=== PATIENT | male | born 1990 | race African-American/Black ===

== ENCOUNTER 2016-09-16 17:07 | Inpatient (IN) ==
[2016-09-16] MEDS ORDERED: SODIUM CHLORIDE 0.9% 1,000 ML IV STA ×2 (17:53→18:38)
--- NOTE | 2016-09-16 17:53 | Emergency Department Note ---
Steven Arnold Brooke, am scribing for, and in the presence of, Cornelio Kilgore MD 17:39. Jame Arnold Phillip K, MD, personally performed the services described in this documentation, ascribed by Aleksandra Harris in my presence, and it is both accurate and complete [id number] . Arrival - Arrival ED Nursing Triage Note: pt to er 05 via ems coming from home with c/o having sob onset today. pt is on hospice care pt does have HIV. Mode of Arrival: Stretcher Limitations: No Limitations Source: Patient, Family (Mother), RN Notes Reviewed <Cornelio Kilogre - Last Filed: 09/16/16 17:52> <Noah Bajwa - Last Filed: 09/16/16 20:24> - Arrival Chief Complaint: Shortness of Breath Stated Complaint: SOB Time Seen by Provider: 09/16/16 17:27 - History of Present Illness HPI Narrative: Patient is a 26 year old male, with history of HIV, who presents to the ED with c/o SOB that started this afternoon. Patient is a poor historian. Mother says she was changing Patient's clothes and he become SOB. Patient was discharged from [facility] on Saturday after being hospitalized for since August 13. following respiratory arrest. Patient was discharged on Hospice with [facility], and was put on comfort measures. Patient's blood pressure has been running low since being discharged. Mother denies Patient having any fever but says he has had a cough and diarrhea. Patient was not prescribed any pain medications and the hospice nurse states that Patient was not in pain at the time of discharge. Patient has no other medical problems. (Aleksandra Harris) Patient is a 26 year old male, with history of HIV, who presents to the ED with c/o SOB that started this afternoon. Patient is a poor historian. Mother says she was changing Patient's clothes and he become SOB. Patient was discharged from [facility] on Saturday after being hospitalized for since August 13. following respiratory arrest. Patient was discharged on Hospice with [facility], and was put on comfort measures. Patient's blood pressure has been running low since being discharged. Mother denies Patient having any fever but says he has had a cough and diarrhea. Patient was not prescribed any pain medications and the hospice nurse states that Patient was not in pain at the time of discharge. Patient has no other medical problems. (Cornelio Kilgore) Allergies/Adverse Reactions: Allergies Allergy/AdvReac Type Severity Reaction Status Date / Time Shellfish Allergy Swelling Verified 08/13/16 01:35 of Lip/Tongue/Throat Home Medications: Home Medications Medication Instructions Recorded Confirmed Type FLUoxetine [PROzac] 20 mg PO QPM 09/16/16 09/16/16 History Review of System - Review of System ROS unobtainable: other (Non resposive) - Review of System Constitutional: Absent: fever Respiratory: Present: cough, other (SOB). Absent: respiratory distress Gastrointestinal: Present: diarrhea <Cornelio Kilgore - Last Filed: 09/16/16 17:52> Medical,Surgical,& Family Hx - Medical History Other: History of: HIV - Social History Smoking Status: Unknown if ever smoked Frequency of Alcohol Use: Unknown Type of Drug Use: Unknown <Cornelio Kilgore - Last Filed: 09/16/16 17:52> Vital Signs: Vital Signs Temperature 97.0 F L 09/16/16 17:07 Pulse Rate 85 09/16/16 19:15 Respiratory Rate 18 09/16/16 19:15 Blood Pressure 77/46 09/16/16 19:15 O2 Sat by Pulse Oximetry 100 09/16/16 19:15 Course <Cornelio Kilgore - Last Filed: 09/16/16 17:52> - Reevaluation(s) Time: 20:23 <Noah Bajwa - Last Filed: 09/16/16 20:24> - Reevaluation(s) Reevaluation #1: Dr. Aleksandr Rivas will evaluate and admit the patient. (Noah Bajwa) Results <Cornelio Kilgore - Last Filed: 09/16/16 17:52> - Labs CBC & BMP: 09/16/16 19:43 09/16/16 19:43 Lab Results: I have reviewed the patients labs - Diagnostic Findings Procedure: Chest x-ray: image reviewed by me (No acute process) <Noah Bajwa - Last Filed: 09/16/16 20:24> - Labs Labs: Lab Results WBC 18.8 T/CUMM (4-12) H 09/16/16 19:43 RBC 3.21 MC/CUMM (3.8-5.5) L 09/16/16 19:43 Hgb 9.3 GM/DL (14.0-18.0) L 09/16/16 19:43 Hct 27.1 VOL% (42.0-52.0) L 09/16/16 19:43 MCV 84.4 FL (87-102) L 09/16/16 19:43 MCH 29 PG (27-34) 09/16/16 19:43 MCHC 34.3 GM/DL (32-36) 09/16/16 19:43 RDW 16.7 % (9.3-17.3) 09/16/16 19:43 Plt Count 490 T/CUMM (130-400) H 09/16/16 19:43 MPV 10.8 FL (9.6-12.0) 09/16/16 19:43 Neut % (Auto) 90.1 % (38.7-73.9) H 09/16/16 19:43 Lymph % (Auto) 3.2 % (21.2-54.2) L 09/16/16 19:43 [place] % (Auto) 4.4 % (1.7-12.7) 09/16/16 19:43 Eos % (Auto) 0.0 % (0.00-10.9) 09/16/16 19:43 Baso % (Auto) 0.1 % (0.0-0.8) 09/16/16 19:43 Neut # (Auto) 16.9 10*3/uL (1.4-7.4) H 09/16/16 19:43 Lymph # (Auto) 0.6 10*3/uL (1.4-4.0) L 09/16/16 19:43 [place] # (Auto) 0.8 10*3/uL (0.11-0.8) 09/16/16 19:43 Eos # (Auto) 0.0 10*3/uL (0.0-0.87) 09/16/16 19:43 Baso # (Auto) 0.0 10*3/uL (0.0-0.2) 09/16/16 19:43 Immature Gran % 2.2 % 09/16/16 19:43 Nucleated RBC % 0.0 /100WBC 09/16/16 19:43 Immature Gran # 0.42 # 09/16/16 19:43 Nucleated RBCs # 0.00 10*3/uL 09/16/16 19:43 (Noah Bajwa) Disposition <Cornelio Kilgore - Last Filed: 09/16/16 17:52> Case discussed with: patient, patient's family Time of Disposition: 20:24 <Noah Bajwa - Last Filed: 09/16/16 20:24> Clinical Impression: Terminal HIV, Profound dehydration, Hypokalemia Disposition: Still a Patient Condition: Stable
--- NOTE | 2016-09-16 18:30 | XRay Report ---
Chest, one view Comparison 08/13/2016 History short of breath The heart is normal in size. The lungs are clear. Impression: No acute pathology seen. PROCEDURE INTERPRETED AT [facility] DEPARTMENT OF RADIOLOGY Final Report Signed by: Dr. Carmencita Damon
[2016-09-16 19:51] LABS: Basophils % 0.1 % (0.0-0.8); Hematocrit 27.1 VOL% (42.0-52.0); Hemoglobin 9.3 GM/DL (14.0-18.0); Immature Granulocytes % 2.2 %; Immature Granulocytes Absolute 0.42 #; Lymphocytes # 0.6 10*3/uL (1.4-4.0); Lymphocytes % 3.2 % (21.2-54.2); Mean Corpuscular HGB Conc 34.3 GM/DL (32-36); Mean Corpuscular Hemoglobin 29 PG (27-34); Mean Corpuscular Volume 84.4 FL (87-102); Mean Platelet Volume 10.8 FL (9.6-12.0); Monocytes # 0.8 10*3/uL (0.11-0.8); Monocytes % 4.4 % (1.7-12.7); Neutrophils # 16.9 10*3/uL (1.4-7.4); Neutrophils % 90.1 % (38.7-73.9); Platelet Count 490 T/CUMM (130-400); Red Blood Count 3.21 MC/CUMM (3.8-5.5); Red Cell Distribution Width 16.7 % (9.3-17.3); White Blood Count 18.8 T/CUMM (4-12)
[2016-09-16 20:14] LABS: Albumin 2.9 G/DL (3.4-5.0); Bilirubin,Total 0.4 MG/DL (0.2-1.0); Calcium 7.5 MG/DL (8.5-10.1); Total Protein 7.4 G/DL (6.4-8.3)
[2016-09-16 20:15] LABS: Magnesium 2.1 MG/DL (1.8-2.4); Potassium 2.9 MMOL/L (3.5-5.1)
[2016-09-16 20:17] LABS: Lymphocytes 2 % (20-55); Segmented Neutrophils 95 % (50-85); Total Cells Counted 100
[2016-09-16 20:18] LABS: Anisocytosis 1+; Burr Cells Few; Platelet Estimate Increased; Polychromasia Few; Schistocytes Few
--- NOTE | 2016-09-16 21:07 | Hospitalist History & Physical ---
Assessment and Plan (1) Dehydration Status: Acute Current Visit: Yes (2) History of wasting syndrome Status: Acute Current Visit: Yes (3) HIV (human immunodeficiency virus infection) Status: Acute Current Visit: Yes (4) Diarrhea Status: Acute Current Visit: Yes (5) Acute kidney injury Status: Acute Current Visit: Yes (6) Hypotension Status: Acute Assessment and plan: Plan for this patient will admit the patient to our service. Patient looks severely dehydrated. Per review of his previous hospitalization he required pressors and had a infection of cryptosporidiosis. We will culture his stool and do stool studies. He has a leukocytosis of 18 currently. He could have a bronchitis. We will treat him with antibiotics IV and monitor the patient in the unit at least overnight. Patient will be a full code. Will recheck x-ray after hydration through the night in the morning. Will consult healthcare social worker. Current Visit: Yes History of Present Illness Chief complaint: Shortness of breath History of present illness: Mr. Zamora is a 26 year old male with past medical history significant for HIV the who presents to the ER complaining of shortness of breath that started this afternoon. According to the ER note this occurred when the patient was having his clothes changed by his mother and he became short of breath. He was just recently discharged from [facility] this Saturday. According to information sent to us he had a respiratory arrest and was intubated and on mechanical ventilation. 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 Looking at the paperwork from the hospitalization he was refusing O2 refusing supplemental shakes eating about 25% of his meals. They felt his was having diarrhea and wasting syndrome. They discharged him on hospice feeling that was the best option for him. They felt he would not survive long at home. They said that in their opinion he was not a candidate for antiretroviral secondary to the diarrhea and significant risk for IRIS (immune reconstitution sensation inflammatory syndrome) his prognosis was very poor. Patient reports that he has had steady diarrhea for several months. He was on antiretrovirals at one time. He said that his family is trying to get him back on them. They brought him up to our hospital for further evaluation. Patient is severely malnourished and dehydrated. He maintains he wants to be a full code. I do not think patient understands the severity of his illness. Home Medications Medication Instructions Recorded Confirmed Type FLUoxetine [PROzac] 20 mg PO QPM 09/16/16 09/16/16 History Allergies Allergy/AdvReac Type Severity Reaction Status Date / Time Shellfish Allergy Swelling Verified 08/13/16 01:35 of Lip/Tongue/Throat Medical,Surgical,& Family Hx - Medical History Other: History of: HIV - Surgical History Surgical History: noncontributory (None) - Family History Family History: Reports;: Family Hypertension - Social History Smoking Status: Unknown if ever smoked Frequency of Alcohol Use: Unknown Type of Drug Use: Unknown 12 point system: reviewed and no additional remarkable complaints except as stated Exam - Constitutional Vitals: Period Temp Pulse Resp BP Sys/Alexander Pulse Ox Last 24 Hr 97.0 F-97.0 F 83-99 16-20 65-95/40-62 94-100 General appearance: no acute distress, under weight (Temporal wasting) - Head Head exam: Present: normal inspection - Eye Eye exam: Present: EOMI Pupils: Present: KERWIN - ENT ENT exam: Present: normal exam - Neck Neck exam: Present: normal inspection - Respiratory Respiratory exam: Present: clear to auscultation bilaterally - Cardiovascular Cardiovascular exam: Present: regular rate and rhythm - GI/Abdominal GI/Abdominal exam: Present: normal bowel sounds - Extremities Exam Extremities exam: Present: normal inspection - Back Exam Back exam: Present: normal inspection - Neurological Exam Neurological exam: Present: alert - Psychiatric Psychiatric exam: Present: flat affect - Skin Skin exam: Present: normal color Results - Labs CBC & BMP: 09/16/16 19:43 09/16/16 19:43
[2016-09-16] MEDS ORDERED: ALBUTEROL 2.5 MG/3 ML NEB RESP TX PRN (21:13)
[2016-09-16] MEDS: SODIUM CHLORIDE 0.9% 1,000 ML IV SCH (22:19)
[2016-09-16] MEDS: POTASSIUM CHLORIDE RIDER 10 MEQ in PREMIX 1 EACH IV SCH ×2 (22:20→23:21)
[2016-09-16] MEDS: ENOXAPARIN 30 MG/0.3 ML SYRINGE SUBCUT SCH (22:20)
[2016-09-16] MEDS: PANTOPRAZOLE 40 MG VIAL IV SCH (22:20)
[2016-09-16] MEDS: cefTRIAXone 1,000 MG in SODIUM CHLORIDE 0.9% 100 ML IV SCH (22:21)
[2016-09-16] MEDS ORDERED: INFLUENZA VIRUS VACCINE 0.5 ML SYRINGE IM ONE (22:43)
[2016-09-16] MEDS: AZITHROMYCIN INJ 500 MG in SODIUM CHLORIDE 0.9% 250 ML IV SCH (23:21)
[2016-09-17] MEDS: POTASSIUM CHLORIDE RIDER 10 MEQ in PREMIX 1 EACH IV SCH (00:40)
[2016-09-17 04:57] LABS: Amorphous Crystals,Urine Occasional /HPF (Few); Apearance,Urine CLOUDY (Clear); Bilirubin,Urine Negative (Negative); Blood, Urine Moderate mg/dL (Negative); Glucose,Urine (UA) Negative (Negative); Ketones,Urine Negative (Negative); Mucus,Urine Occasional /LPF (Occasional); Nitrite,Urine Negative (Negative); Protein,Urine 30 MG/DL; RBC,Urine 2 /HPF (0-4); Urine Color Dark yellow (Yellow); Urine Specific Gravity 1.013 (1.001-1.035); Urine Urobilinogen < 2.0 EU/DL (0.2-1.0); WBC,Urine 31 /HPF (0-6)
[2016-09-17 06:10] LABS: Calcium 6.7 MG/DL (8.5-10.1); Osmolality,Calculated 293.8 MOS/KG (273-304); Potassium 3.3 MMOL/L (3.5-5.1)
[2016-09-17 06:43] LABS: Basophils % 0.1 % (0.0-0.8); Hematocrit 28.1 VOL% (42.0-52.0); Hemoglobin 9.8 GM/DL (14.0-18.0); Immature Granulocytes Absolute 0.27 #; Lymphocytes # 0.5 10*3/uL (1.4-4.0); Lymphocytes % 3.8 % (21.2-54.2); Mean Corpuscular HGB Conc 34.9 GM/DL (32-36); Mean Corpuscular Hemoglobin 29 PG (27-34); Mean Corpuscular Volume 81.9 FL (87-102); Mean Platelet Volume 10.8 FL (9.6-12.0); Monocytes # 0.9 10*3/uL (0.11-0.8); Monocytes % 7.1 % (1.7-12.7); NRBC # 0.02 10*3/uL; Neutrophils # 11.6 10*3/uL (1.4-7.4); Platelet Count 524 T/CUMM (130-400); Red Blood Count 3.43 MC/CUMM (3.8-5.5); Red Cell Distribution Width 16.2 % (9.3-17.3); White Blood Count 13.3 T/CUMM (4-12)
[2016-09-17 07:05] LABS: Lymphocytes 1 % (20-55); Segmented Neutrophils 97 % (50-85); Total Cells Counted 100
[2016-09-17 07:06] LABS: Burr Cells Slight; Elliptocytes Few; Hypochromasia Slight; Platelet Estimate Adequate
--- NOTE | 2016-09-17 07:24 | XRay Report ---
XR chest 1V Indication: Shortness of breath. Chest one view: Comparison yesterday. The heart size and mediastinal contour are normal. The lungs and pleural spaces are clear. Bones are unremarkable. Impression: Negative chest. Unchanged. PROCEDURE INTERPRETED AT [facility] DEPARTMENT OF RADIOLOGY Final Report Signed by: Aleksandr Guy M.D.
[2016-09-17] MEDS: SODIUM CHLORIDE 0.9% 1,000 ML IV SCH ×4 (07:31→22:40)
--- NOTE | 2016-09-17 16:20 | Hospitalist Progress Note ---
Assessment and Plan (1) Acute kidney injury Status: Acute Assessment and plan: Possibly due to dehydration. Unknown baseline, but did improve overnight. Continue with hydration. Current Visit: Yes (2) Dehydration Status: Acute Current Visit: Yes (3) Diarrhea Status: Acute Assessment and plan: C.diff and stool cultures negative Current Visit: Yes (4) HIV (human immunodeficiency virus infection) Status: Acute Current Visit: Yes (5) History of wasting syndrome Status: Acute Current Visit: Yes (6) Hypokalemia Status: Acute Current Visit: Yes (7) Hypotension Status: Acute Assessment and plan: Slightly better Current Visit: Yes Hospitalist: Subjective Interval history: No acute events overnight. BP low but stable, not requiring pressors. Creatinine is better today. Will transfer to the floor. Exam - Constitutional Vitals: Period Temp Pulse Resp BP Sys/Alexander Pulse Ox Last 24 Hr 97.1 F-97.6 F 60-96 11-21 69-120/33-66 96-100 General appearance: cachectic - Head Head exam: Present: normocephalic, atraumatic - Eye Eye exam: Present: EOMI Pupils: Present: KERWIN - ENT ENT exam: Present: normal exam - Neck Neck exam: Present: normal inspection - Respiratory Respiratory exam: Present: clear to auscultation bilaterally. Absent: rales, wheezes - Cardiovascular Cardiovascular exam: Present: regular rate and rhythm - GI/Abdominal GI/Abdominal exam: Present: normal bowel sounds, soft. Absent: tenderness, rebound - Extremities Exam Extremities exam: Present: normal inspection - Back Exam Back exam: Present: normal inspection - Neurological Exam Neurological exam: Present: alert - Psychiatric Psychiatric exam: Present: normal affect, normal mood - Skin Skin exam: Present: warm, intact Results - Labs CBC & BMP: 09/17/16 06:17 09/17/16 05:09
[2016-09-17] MEDS: PANTOPRAZOLE 40 MG VIAL IV SCH (22:38)
[2016-09-17] MEDS: FLUoxetine 20 MG CAPSULE PO SCH (22:38)
[2016-09-17] MEDS: DIPHENOXYLATE/ATROPINE 2.5-0.025 MG TABLET PO PRN (22:38)
[2016-09-17] MEDS: ENOXAPARIN 30 MG/0.3 ML SYRINGE SUBCUT SCH (22:38)
[2016-09-17] MEDS: cefTRIAXone 1,000 MG in SODIUM CHLORIDE 0.9% 100 ML IV SCH (22:39)
[2016-09-17] MEDS: AZITHROMYCIN INJ 500 MG in SODIUM CHLORIDE 0.9% 250 ML IV SCH (23:30)
[2016-09-18 04:10] LABS: Basophils % 0.1 % (0.0-0.8); Eosinophils % 0.1 % (0.00-10.9); Hematocrit 25.7 VOL% (42.0-52.0); Hemoglobin 9.1 GM/DL (14.0-18.0); Immature Granulocytes % 1.4 %; Immature Granulocytes Absolute 0.11 #; Lymphocytes # 0.4 10*3/uL (1.4-4.0); Lymphocytes % 4.8 % (21.2-54.2); Mean Corpuscular HGB Conc 35.4 GM/DL (32-36); Mean Corpuscular Hemoglobin 29 PG (27-34); Mean Corpuscular Volume 81.3 FL (87-102); Mean Platelet Volume 10.7 FL (9.6-12.0); Monocytes # 0.7 10*3/uL (0.11-0.8); Monocytes % 8.8 % (1.7-12.7); NRBC # 0.03 10*3/uL; Neutrophils # 6.5 10*3/uL (1.4-7.4); Neutrophils % 84.8 % (38.7-73.9); Platelet Count 492 T/CUMM (130-400); Red Blood Count 3.16 MC/CUMM (3.8-5.5); White Blood Count 7.6 T/CUMM (4-12)
[2016-09-18 04:52] LABS: Hypochromasia 1+; Lymphocytes 6 % (20-55); Nucleated Red Blood Cells 1 (0-5); Platelet Estimate Adequate; Segmented Neutrophils 87 % (50-85); Total Cells Counted 100
[2016-09-18 04:53] LABS: Ovalocytes Slight
[2016-09-18 04:58] LABS: Calcium 7.7 MG/DL (8.5-10.1); Magnesium 2.1 MG/DL (1.8-2.4); Osmolality,Calculated 302.7 MOS/KG (273-304); Potassium 2.7 MMOL/L (3.5-5.1)
[2016-09-18] MEDS: SODIUM CHLORIDE 0.9% 1,000 ML IV SCH ×3 (07:09→20:23)
[2016-09-18] MEDS ORDERED: POTASSIUM CHLORIDE 20 MEQ/15 ML UDCUP PER TUBE PRN (10:05)
[2016-09-18] MEDS: POTASSIUM CHLORIDE RIDER 10 MEQ in PREMIX 1 EACH IV PRN ×4 (11:54→15:55)
--- NOTE | 2016-09-18 14:22 | General Surgery Consult Note ---
Assessment and Plan (1) Sacral ulcer Status: Acute Assessment and plan: Impression: Sacral ulcer Plan: Depth of the ulcer unknown. It needs debridement at some point in the near future but this can wait until he is better medically. I'll plan to debride this once he is cleared by his primary team to undergo anesthesia. This does not appear to be infected. He cannot tolerate bedside debridement as it is very tender. Current Visit: Yes History of Present Illness Chief complaint: consult for sacral ulcer History of present illness: Mr. Zamora is a 26 year old male with HIV and multiple medical problems has been transferred to the floor from the ICU. He was noted to have a sacral ulcer. This is been present for a long time. Home Medications Medication Instructions Recorded Confirmed Type FLUoxetine [PROzac] 20 mg PO QPM 09/16/16 09/16/16 History Allergies Allergy/AdvReac Type Severity Reaction Status Date / Time Shellfish Allergy Swelling Verified 08/13/16 01:35 of Lip/Tongue/Throat Medical,Surgical,& Family Hx - Medical History Cardio: History of: Cardiovascular Problems (recent cardiac arrest) Psychological: History of: Depression, Previous Suicide Attempt Endocrine: No history of: Diabetes Mellitus (IDDM), Diabetes Mellitus (NIDDM), Thyroid Disorder Respiratory: History of: Intubation Gastrointestinal: History of: GI Problems (diagonosis of cryptosporidosis) Other: History of: HIV - Family History Family History: Reports;: Family Hypertension - Social History Smoking Status: Unknown if ever smoked Frequency of Alcohol Use: Unknown Type of Drug Use: Unknown 12 point system: reviewed and no additional remarkable complaints except as stated Exam - Constitutional Vitals: Period Temp Pulse Resp BP Sys/Alexander Pulse Ox Last 24 Hr 97.0 F-98.4 F 90-98 18-20 100-106/55-70 94-100 General appearance: no acute distress - Head Head exam: Present: normocephalic - Respiratory Respiratory exam: Present: clear to auscultation bilaterally - Cardiovascular Cardiovascular exam: Present: RRR - GI/Abdominal GI/Abdominal exam: Present: soft - Extremities Exam Extremities exam: Present: other (large sacral ulcer with necrotic subcutaneous tissue present. There is no erythema or purulence.) Results - Labs CBC & BMP: 09/18/16 03:51 09/18/16 03:51
--- NOTE | 2016-09-18 17:07 | Hospitalist Progress Note ---
Assessment and Plan (1) Acute kidney injury Status: Acute Assessment and plan: Possibly due to dehydration. Unknown baseline, but continues to improve. Continue with hydration. Current Visit: Yes (2) Dehydration Status: Acute Current Visit: Yes (3) Diarrhea Status: Acute Assessment and plan: C.diff and stool cultures negative Current Visit: Yes (4) HIV (human immunodeficiency virus infection) Status: Acute Current Visit: Yes (5) History of wasting syndrome Status: Acute Current Visit: Yes (6) Hypokalemia Status: Acute Current Visit: Yes (7) Hypotension Status: Acute Assessment and plan: Slightly better Current Visit: Yes Hospitalist: Subjective Interval history: No acute events overnight. Patient still not very talkative. Does have a significant ulcer, surgery consulted. Replace potassium. Leukocytosis is resolved. Exam - Constitutional Vitals: Period Temp Pulse Resp BP Sys/Alexander Pulse Ox Last 24 Hr 97.3 F-98.4 F 90-95 18-20 102-106/55-70 99-100 Results - Labs CBC & BMP: 09/18/16 03:51 09/18/16 03:51
[2016-09-18] MEDS: FLUoxetine 20 MG CAPSULE PO SCH (18:44)
[2016-09-18] MEDS: PANTOPRAZOLE 40 MG VIAL IV SCH (22:51)
[2016-09-18] MEDS: ENOXAPARIN 30 MG/0.3 ML SYRINGE SUBCUT SCH (22:53)
[2016-09-18] MEDS: cefTRIAXone 1,000 MG in SODIUM CHLORIDE 0.9% 100 ML IV SCH (22:54)
[2016-09-18] MEDS: AZITHROMYCIN INJ 500 MG in SODIUM CHLORIDE 0.9% 250 ML IV SCH (23:38)
[2016-09-19] MEDS: SODIUM CHLORIDE 0.9% 1,000 ML IV SCH ×2 (04:37→11:00)
[2016-09-19] MEDS: POTASSIUM CHLORIDE RIDER 10 MEQ in PREMIX 1 EACH IV PRN ×9 (04:43→23:36)
[2016-09-19 06:05] LABS: Eosinophils % 0.1 % (0.00-10.9); Hematocrit 25.7 VOL% (42.0-52.0); Immature Granulocytes % 0.6 %; Immature Granulocytes Absolute 0.05 #; Lymphocytes # 0.3 10*3/uL (1.4-4.0); Lymphocytes % 4.1 % (21.2-54.2); Mean Corpuscular Hemoglobin 29 PG (27-34); Mean Corpuscular Volume 82.1 FL (87-102); Mean Platelet Volume 10.8 FL (9.6-12.0); Monocytes # 0.5 10*3/uL (0.11-0.8); Monocytes % 6.1 % (1.7-12.7); Neutrophils # 6.9 10*3/uL (1.4-7.4); Neutrophils % 89.1 % (38.7-73.9); Platelet Count 472 T/CUMM (130-400); Red Blood Count 3.13 MC/CUMM (3.8-5.5); Red Cell Distribution Width 16.4 % (9.3-17.3); White Blood Count 7.7 T/CUMM (4-12)
[2016-09-19 06:30] LABS: Calcium 8.4 MG/DL (8.5-10.1); Osmolality,Calculated 304.1 MOS/KG (273-304); Potassium 2.6 MMOL/L (3.5-5.1)
[2016-09-19 06:36] LABS: Band Neutrophils 4 % (0-10); Elliptocytes Few; Hypochromasia 1+; Lymphocytes 5 % (20-55); Platelet Estimate Adequate; Segmented Neutrophils 87 % (50-85); Total Cells Counted 100
--- NOTE | 2016-09-19 09:03 | Hospitalist Progress Note ---
Assessment and Plan (1) Acute kidney injury Status: Acute Assessment and plan: Continues to improve, will decrease fluids Current Visit: Yes (2) Dehydration Status: Acute Current Visit: Yes (3) Diarrhea Status: Acute Assessment and plan: C.diff and stool cultures negative Current Visit: Yes (4) HIV (human immunodeficiency virus infection) Status: Acute Current Visit: Yes (5) History of wasting syndrome Status: Acute Current Visit: Yes (6) Hypokalemia Status: Acute Current Visit: Yes (7) Hypotension Status: Acute Assessment and plan: Much better Current Visit: Yes Hospitalist: Subjective Interval history: No acute events overnight. Patient still not very talkative. Attempted to discuss his previous decision for hospice care. His mother is coming today, will have a discussion with both of them together. Patient's leukocytosis is now resolved, as is his acute kidney injury. Urine culture returned with no growth. Surgery following for sacral wound, plan for OR debridement maybe tomorrow. Exam - Constitutional Vitals: Period Temp Pulse Resp BP Sys/Alexander Pulse Ox Last 24 Hr 97 F-99.3 F 88-96 18-20 96-140/60-70 96-100 General appearance: under weight - Head Head exam: Present: normocephalic, atraumatic - Eye Eye exam: Present: EOMI Pupils: Present: KERWIN - ENT ENT exam: Present: normal exam - Neck Neck exam: Present: normal inspection. Absent: tenderness - Respiratory Respiratory exam: Present: clear to auscultation bilaterally - Cardiovascular Cardiovascular exam: Present: regular rate and rhythm - GI/Abdominal GI/Abdominal exam: Present: normal bowel sounds, soft. Absent: tenderness, rebound - Extremities Exam Extremities exam: Present: normal inspection - Back Exam Back exam: Present: normal inspection - Neurological Exam Neurological exam: Present: alert - Psychiatric Psychiatric exam: Present: normal affect, normal mood - Skin Skin exam: Present: warm, intact Results - Labs CBC & BMP: 09/19/16 05:03 09/19/16 05:03
--- NOTE | 2016-09-19 13:30 | Event Note ---
Patient has been cleared for anesthesia for debridement of his sacral ulcer. Plan for debridement tomorrow. The procedure was discussed with the patient in detail. Risk of the procedure including bleeding, infection, damage to surrounding structures, need for further surgery were discussed with him in detail and he wants to proceed.
[2016-09-19] MEDS ORDERED: POTASSIUM CHLORIDE 20 MEQ TABLET PO SCH (18:00)
[2016-09-19] MEDS: FLUoxetine 20 MG CAPSULE PO SCH (18:40)
[2016-09-19] MEDS: ONDANSETRON 4 MG/2 ML VIAL IV PRN (20:26)
[2016-09-19] MEDS: PANTOPRAZOLE 40 MG VIAL IV SCH ×2 (20:26→21:53)
[2016-09-19] MEDS: ENOXAPARIN 40 MG/0.4 ML SYRINGE SUBCUT SCH (21:53)
[2016-09-19] MEDS: cefTRIAXone 1,000 MG in SODIUM CHLORIDE 0.9% 100 ML IV SCH (21:53)
[2016-09-19] MEDS: AZITHROMYCIN INJ 500 MG in SODIUM CHLORIDE 0.9% 250 ML IV SCH (23:20)
[2016-09-19] MEDS: POTASSIUM CHLORIDE 20 MEQ/15 ML UDCUP PO SCH (23:36)
[2016-09-20] MEDS: POTASSIUM CHLORIDE RIDER 10 MEQ in PREMIX 1 EACH IV PRN ×4 (00:33→04:34)
[2016-09-20] MEDS: ONDANSETRON 4 MG/2 ML VIAL IV PRN ×3 (02:01→18:23)
[2016-09-20] MEDS: POTASSIUM CHLORIDE 20 MEQ/15 ML UDCUP PO SCH ×3 (05:49→18:21)
[2016-09-20 06:38] LABS: Basophils % 0.1 % (0.0-0.8); Eosinophils % 0.1 % (0.00-10.9); Hemoglobin 9.6 GM/DL (14.0-18.0); Immature Granulocytes % 0.8 %; Immature Granulocytes Absolute 0.06 #; Lymphocytes # 0.4 10*3/uL (1.4-4.0); Lymphocytes % 5.4 % (21.2-54.2); Mean Corpuscular HGB Conc 35.6 GM/DL (32-36); Mean Corpuscular Hemoglobin 29 PG (27-34); Mean Corpuscular Volume 81.6 FL (87-102); Mean Platelet Volume 10.6 FL (9.6-12.0); Monocytes # 0.5 10*3/uL (0.11-0.8); Monocytes % 6.3 % (1.7-12.7); NRBC # 0.03 10*3/uL; Neutrophils # 6.8 10*3/uL (1.4-7.4); Neutrophils % 87.3 % (38.7-73.9); Platelet Count 475 T/CUMM (130-400); Red Blood Count 3.31 MC/CUMM (3.8-5.5); Red Cell Distribution Width 17.3 % (9.3-17.3); White Blood Count 7.7 T/CUMM (4-12)
[2016-09-20 06:57] LABS: Hypochromasia 1+; Microcytosis 1+; Ovalocytes Few
[2016-09-20 06:58] LABS: Platelet Estimate Increased
[2016-09-20 07:05] LABS: Calcium 8.4 MG/DL (8.5-10.1); Magnesium 1.9 MG/DL (1.8-2.4); Osmolality,Calculated 298.4 MOS/KG (273-304); Potassium 3.8 MMOL/L (3.5-5.1)
[2016-09-20] MEDS ORDERED: LIDOCAINE 2%/EPI 20 ML VIAL ONE (08:49)
[2016-09-20] MEDS ORDERED: MIDAZOLAM 2 MG/2 ML VIAL ONE (09:53)
[2016-09-20] MEDS ORDERED: fentaNYL 100 MCG/2 ML VIAL ONE (09:54)
[2016-09-20] MEDS ORDERED: KETAMINE 500 MG/10 ML VIAL ONE (09:54)
[2016-09-20] MEDS ORDERED: LACTATED RINGERS 1,000 ML IV SCH (10:00)
[2016-09-20] MEDS: SODIUM CHLORIDE 0.9% 1,000 ML IV SCH ×5 (10:15→18:22)
--- NOTE | 2016-09-20 10:40 | Anesthesia ---
Anesthesia Post OP - Post Ansesthetic Evaluation Patient seen in post op: Yes Resp: within normal limits CV: within normal limits Mental: within normal limits Temp: within normal limits [id number]: within normal limits Nausea and Vomiting: within normal limits Pain: within normal limits
--- NOTE | 2016-09-20 11:48 | Operative Note ---
Date of procedure: 09/20/16 Pre-op diagnosis: sacral ulcer with nonviable tissue Post-op diagnosis: same Procedure: Procedure performed: #1 excisional debridement of sacral ulcer including skin and subcutaneous tissue and fascia. Area debrided was 8 x 5 cm Procedure in detail: After informed consent was obtained patient was taken operating suite and laid on his right side. After monitored anesthesia initiated the sacral area was prepped and draped in usual sterile fashion. After procedural pause a 10 blade scalpel was used to perform an excisional debridement removing the necrotic and nonviable skin and subcutaneous tissue and fascia. The ulcer went down to the bone but did not appear to invade the periosteum. The fascia in this area was necrotic and removed. I removed all the obviously nonviable tissue. The wound was hemostatic and packed with damp Kerlix gauze. Sterile dressings applied. The patient was taken recovery in stable condition. All lap and needle counts correct at the end of the case. Anesthesia: MAC Surgeon / Physician: Jeromy Pulido Estimated blood loss: other (less than 10 mL) Specimens: none sent Condition: stable Disposition: PACU Results - Labs CBC & BMP: 09/20/16 06:19 09/20/16 06:19 Discharge Plan - Discharge Medications No Action FLUoxetine [PROzac] 20 mg PO QPM - Follow Up or Referral - Forms/Instructions
--- NOTE | 2016-09-20 13:38 | Hospitalist Progress Note ---
Assessment and Plan (1) Acute kidney injury Status: Acute Assessment and plan: Continues to improve, d/c fluids Current Visit: Yes (2) Dehydration Status: Acute Current Visit: Yes (3) Diarrhea Status: Acute Assessment and plan: C.diff and stool cultures negative Current Visit: Yes (4) HIV (human immunodeficiency virus infection) Status: Acute Current Visit: Yes (5) History of wasting syndrome Status: Acute Current Visit: Yes (6) Hypokalemia Status: Acute Current Visit: Yes (7) Hypotension Status: Acute Assessment and plan: Much better Current Visit: Yes Hospitalist: Subjective Interval history: No acute events overnight. Discussion with patient, his and his sister yesterday about his overall poor prognosis. We discussed the previous decision for hospice and the recent decision for full code. Discussed the difference as well as the option of seeing his usual Infectious Disease doctor in [place] for a second opinion about the decision at [facility] to not restart TERRELL therapy. Today I spoke with patient and his mom, they have decided to pursue hospice care at discharge. He would like for his code status to be changed to DNR. Pt s/p debridement today for sacral wound. Denies pain. Exam - Constitutional Vitals: Period Temp Pulse Resp BP Sys/Alexander Pulse Ox Last 24 Hr 97.3 F-98.3 F 87-99 14-18 81-101/49-63 100-100 General appearance: cachectic - Head Head exam: Present: normocephalic, atraumatic - Eye Eye exam: Present: EOMI Pupils: Present: KERWIN - ENT ENT exam: Present: normal exam - Neck Neck exam: Present: normal inspection. Absent: tenderness - Respiratory Respiratory exam: Present: clear to auscultation bilaterally. Absent: rhonchi, wheezes - Cardiovascular Cardiovascular exam: Present: regular rate and rhythm - GI/Abdominal GI/Abdominal exam: Present: normal bowel sounds, soft. Absent: tenderness, rebound - Extremities Exam Extremities exam: Present: normal inspection - Back Exam Back exam: Present: normal inspection - Neurological Exam Neurological exam: Present: alert - Psychiatric Psychiatric exam: Present: depressed - Skin Skin exam: Present: warm, intact Results - Labs CBC & BMP: 09/20/16 06:19 09/20/16 06:19
--- NOTE | 2016-09-20 13:41 | Physician Query Form ---
CLICK EDIT DOCUMENT TO SELECT QUERY ANSWER --> OK --> SIGN Romelia Elise RN, CCDS Certified Clinical Heating And Ventilating Worker W) [phone] (f) [phone] [email or web address] PROVIDERS: Make your selection(s) from the choices in EACH section by typing an "x" and enter comments in the comment section. Please use your independent medical judgment in providing your response. This request does not imply that any particular answer is desired or expected. CLINICAL INDICATORS: (Providers should not edit this section) Documented acute kidney injury and dehydration with wasting syndrome, hypotension, hypokalemia, diarrhea with negative C. Diff. 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 Patient has a diagnosis of HIV on home hospice. Based on the above, could you clarify the appropriate diagnosis, if significant , that supports the above abnormalities and additional evaluation, monitoring, and/or treatment rendered: (x ) Above conditions related to HIV ( ) Above conditions unrelated to HIV ( ) Other, please specify: ( ) Clinically unable to determine COMMENTS: Use of terms such as suspected, likely, or probable (associated with a specific diagnosis that is being evaluated, monitored, or treated as if it exists) are acceptable and can be restated in the discharge summary if not ruled out. MTDD
[2016-09-20] MEDS: DESITIN 4OZ/NYSTATIN 15 GRAM MIXTURE PASTE TOP SCH ×2 (18:00→20:28)
[2016-09-20] MEDS: FLUoxetine 20 MG CAPSULE PO SCH (18:21)
[2016-09-20] MEDS: DIPHENOXYLATE/ATROPINE 2.5-0.025 MG TABLET PO PRN (20:28)
[2016-09-20] MEDS: ENOXAPARIN 40 MG/0.4 ML SYRINGE SUBCUT SCH (21:00)
[2016-09-20] MEDS: PANTOPRAZOLE 40 MG VIAL IV SCH (21:19)
[2016-09-20] MEDS: cefTRIAXone 1,000 MG in SODIUM CHLORIDE 0.9% 100 ML IV SCH (21:20)
[2016-09-20] MEDS: AZITHROMYCIN INJ 500 MG in SODIUM CHLORIDE 0.9% 250 ML IV SCH (23:20)
[2016-09-21] MEDS: POTASSIUM CHLORIDE 20 MEQ/15 ML UDCUP PO SCH ×3 (01:08→12:28)
[2016-09-21] MEDS: SODIUM CHLORIDE 0.9% 1,000 ML IV SCH ×3 (03:36→15:21)
[2016-09-21 05:20] LABS: Basophils % 0.1 % (0.0-0.8); Hematocrit 27.3 VOL% (42.0-52.0); Hemoglobin 9.4 GM/DL (14.0-18.0); Immature Granulocytes % 1.3 %; Lymphocytes # 0.5 10*3/uL (1.4-4.0); Lymphocytes % 6.8 % (21.2-54.2); Mean Corpuscular HGB Conc 34.4 GM/DL (32-36); Mean Corpuscular Hemoglobin 29 PG (27-34); Mean Corpuscular Volume 83.5 FL (87-102); Mean Platelet Volume 10.4 FL (9.6-12.0); Monocytes # 0.4 10*3/uL (0.11-0.8); Monocytes % 5.3 % (1.7-12.7); NRBC # 0.03 10*3/uL; Neutrophils # 6.5 10*3/uL (1.4-7.4); Neutrophils % 86.5 % (38.7-73.9); Platelet Count 441 T/CUMM (130-400); Red Blood Count 3.27 MC/CUMM (3.8-5.5); Red Cell Distribution Width 18.1 % (9.3-17.3); White Blood Count 7.5 T/CUMM (4-12)
[2016-09-21 05:50] LABS: Band Neutrophils 2 % (0-10); Hypochromasia 1+; Lymphocytes 5 % (20-55); Platelet Estimate Adequate; Segmented Neutrophils 90 % (50-85); Total Cells Counted 100
[2016-09-21 05:51] LABS: Microcytosis 1+; Ovalocytes Slight
[2016-09-21] MEDS: DESITIN 4OZ/NYSTATIN 15 GRAM MIXTURE PASTE TOP SCH (09:11)
--- NOTE | 2016-09-21 10:21 | Event Note ---
Sacral wound is clean. Vital signs are stable. There is no necrotic tissue remaining. Continue wet-to-dry dressing changes and frequent turning. He can be discharged from surgical standpoint when he is ready medically. He'll need to be wet-to-dry dressing changes at home hospice.
--- NOTE | 2016-09-21 11:39 | Discharge Summary ---
Hospital Course - Hospital Course Hospital Course: Mr. Zamora is a 26 year old male with past medical history significant for HIV the who presented to the ER complaining of shortness of breath that started that afternoon. According to the ER note this occurred when the patient was having his clothes changed by his mother and he became short of breath. He was just recently discharged from [facility] this three days ago. According to information sent to us he had a respiratory arrest and was intubated and on mechanical ventilation. 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 Looking at the paperwork from the hospitalization he was refusing O2 refusing supplemental shakes eating about 25% of his meals. They felt his was having diarrhea and wasting syndrome. They discharged him on hospice feeling that was the best option for him. They felt he would not survive long at home. They said that in their opinion he was not a candidate for antiretroviral secondary to the diarrhea and significant risk for IRIS ( immune reconstitution sensation inflammatory syndrome) his prognosis was very poor. Patient reports that he has had steady diarrhea for several months. He was on antiretrovirals at one time. He said that his family is trying to get him back on them. They brought him up to our hospital for further evaluation. Patient is severely malnourished and dehydrated. He maintains he wants to be a full code. Patient was admitted with dehydration leading to acute kidney injury and hypotension. He was originally admitted to the intensive care unit for closer monitoring. He did well throughout the night, not requiring any pressors. He was hydrated with IV fluids. Started on empiric broad spectrum antibiotics. No signs of infection were discovered. He was discovered to have a chronic sacral ulcer. Surgery was consulted and the ulcer was debrided. Long discussion with patient and his family about his prognosis and future plans. The patient decided that he wanted to return home with hospice care. He has now reached maximum benefit of inpatient stay and will be discharged home on hospice care. - Time spent with patient Time with patient DS: Less than 30 minutes Diagnosis - Discharge Diagnosis (1) Acute kidney injury Status: Resolved (2) Dehydration Status: Resolved (3) Diarrhea Status: Chronic (4) HIV (human immunodeficiency virus infection) Status: Chronic (5) History of wasting syndrome Status: Chronic (6) Hypokalemia Status: Resolved (7) Hypotension Status: Resolved Specialty Discharge - Follow Up or Referrals Discharge Plan - Discharge Data Disposition: Hospice - Home Condition at Discharge: Guarded Discharge Diet: advance to your usual diet Activity: resume usual activities as tolerated Hygiene: no restrictions Weight Bearing at Discharge: weight bear as tolerated - Discharge Medications New HYDROcodone/ACETAMIN 5-325 [Berlin 5-325] 1 tablet PO Q4H #30 tablet Continue FLUoxetine [PROzac] 20 mg PO QPM - Follow Up or Referral - Forms/Instructions Instructions: Dehydration (DC), Hypokalemia (DC), Hypotension (DC) Exam - Constitutional Vitals: Period Temp Pulse Resp BP Sys/Alexander Pulse Ox Last 24 Hr 97.1 F-98.6 F 85-101 16-18 83-141/55-91 100-100 Discharge Results Procedures and tests throughout hospitalization: Pending Orders 09/16/16 Occult Blood, Stool Routine 09/16/16 21:17 Cryptosporidium Antigen Stool Routine 09/17/16 19:09 Blood Culture Routine Labs on day of discharge: Labs from last 24 hours 09/21/16 05:02 WBC 7.5 RBC 3.27 L Hgb 9.4 L Hct 27.3 L MCV 83.5 L MCH 29 MCHC 34.4 RDW 18.1 H Plt Count 441 H MPV 10.4 Neut % (Auto) 86.5 H Lymph % (Auto) 6.8 L Kay % (Auto) 5.3 Eos % (Auto) 0.0 Baso % (Auto) 0.1 Neut # (Auto) 6.5 Lymph # (Auto) 0.5 L Kay # (Auto) 0.4 Eos # (Auto) 0.0 Baso # (Auto) 0.0 Total Counted 100 Immature Gran % 1.3 Nucleated RBC % 0.4 Immature Gran # 0.10 Segmented Neutrophils 90 H Band Neutrophils 2 Lymphocytes 5 L Monocytes 3 Nucleated RBCs # 0.03 Platelet Estimate Adequate Hypochromasia 1+ Microcytosis 1+ Ovalocytes Slight Morphology Comment Preliminary micro results at discharge 09/17/16 19:09 Blood Culture - Preliminary Blood No growth at 3 days 09/17/16 19:09 Blood Culture - Preliminary Blood No growth at 3 days DS: Provider Date of admission: 09/16/16 21:13 Primary care physician: . No PCP Attending physician on admission: Lennie Lechuga MD Consults: 09/16/16 21:24 Consult to Pharmacy [CONS] Routine Reason for Pharmacy Consult: Adjust Meds Renal Funct 09/16/16 22:38 Consult to Dietitian [CONS] Routine Reason for Dietitian: Supplements and/or Snacks Consult Comment: end stage hiv with 60lb+ weight loss since febuary 09/18/16 11:07 Consult to Physician [CONS] Routine Comment: Sacral wound evaluation Consulting Provider: Jeromy Pulido Person Notified: [email or web address] Date Notified: 09/18/16 Time Notified: 11:11 09/20/16 07:35 Consult to Dietitian [CONS] Routine Reason for Dietitian: Diet Recommendations Consult Comment: pt having extreme diarrhea, supplement suggestions? Discharging clinician: Lennie Lechuga MD
[2016-09-21 12:23] VITALS: BP 103/57
[2016-09-21] MEDS: ONDANSETRON 4 MG/2 ML VIAL IV PRN (12:28)
--- NOTE | 2016-10-01 09:50 | Physician Query Form ---
CLICK EDIT DOCUMENT TO SELECT QUERY ANSWER --> OK --> SIGN PROVIDERS: Make your selection(s) from the choices in EACH section by typing an "x" and enter comments in the comment section. Please use your independent medical judgment in providing your response. This request does not imply that any particular answer is desired or expected. CLINICAL INDICATORS: (Providers should not edit this section) Patient had Stage 4 acute sacral pressure ulcer, present on admission per wound care nurse assessment which required excisional debridement. Only documented within record as sacral ulcer. Based on the above, could you clarify the appropriate diagnosis, if significant , that supports the above abnormalities and additional evaluation, monitoring, and/or treatment rendered: (x ) Sacral decubitus/pressure ulcer ( ) Sacral ulcer due to other cause, please specify ( ) Other, please specify: ( ) Clinically unable to determine COMMENTS: Use of terms such as suspected, likely, or probable (associated with a specific diagnosis that is being evaluated, monitored, or treated as if it exists) are acceptable and can be restated in the discharge summary if not ruled out. [facility]
== END 2016-09-21 15:23 | disposition hospice, home (50) | DRG 969 ==
LOC: EDSEX → N.ED 17:07 → N.EDINP 21:13 → N.CC 21:45 → N.5E 09-17 18:01
PROVIDERS: ADMIT Internal Medicine; ATTEND Internal Medicine